=== PATIENT | female | born 1940 | race Caucasian/White ===

== ENCOUNTER → 2017-10-12 | Outpatient (CLI) | payer MEDICARE ==
[2016-04-29 10:55] VITALS: BP 111/70
[~2017-10-12] MED LIST: AMBIEN10 MG PO; CELEXA 20MG20 MG/TA1 PO; K-TAB20 MEQ PO; LASIX 40MG TABL40 MG PO; MOBIC15 M1 PO; PENTASA500 MG PO; SYNTHROID0.2 MG/TAB PO
== END ==
LOC: LAB 10:13
DX: E03.9 Hypothyroidism, unspecified (principal)

== ENCOUNTER → 2017-10-20 | Outpatient (CLI) | payer MEDICARE ==
[2016-04-29 10:55] VITALS: BP 111/70
[2017-10-20 12:19] LABS: BASO # 0.1 (0.02-0.10); EOS # 0.2 (0.04-0.40); EOS % 2.9 % (1.0-5.0); HEMATOCRIT 32.9 % (37.0-47.0); HEMOGLOBIN 9.7 g/dL (12.5-16.0); LYMPH# 1.2 (1.50-4.00); MEAN CELL VOLUME 105 fl (78-100); MEAN CORPUSCULAR HEMOGLOBIN 31 pg (27-31); MEAN CORPUSCULAR HGB CONC 30 g/dL (33-37); MEAN PLATELET VOLUME 10.5 fl (7.4-10.4); MONO # 0.7 (0.20-0.80); NEU # 5.8 (1.40-6.50); PLATELET COUNT 272 K/mm3 (130-400); RED BLOOD COUNT 3.14 M/mm3 (4.10-5.30); RED CELL DISTRIBUTION WIDTH 14.9 % (11.5-14.5); WHITE BLOOD COUNT 8.4 K/mm3 (4.8-10.8)
[2017-10-20 12:29] LABS: ALBUMIN 2.8 g/dL (3.5-5.0); BUN/CREATININE RATIO 8.3 (6.0-26.0); CALCIUM 8.1 mg/dL (8.4-10.2); POTASSIUM 4.9 mmol/L (3.6-5.0); TOTAL BILIRUBIN 0.7 mg/dL (0.2-1.3); TOTAL PROTEIN 5.4 g/dL (6.3-8.2)
[2017-10-20 13:25] LABS: ERYTHROCYTE SEDIMENTATION RATE 11 mm/hr (0-30)
== END ==
LOC: LAB 11:19
PROVIDERS: Internal Medicine
DX: R19.7 Diarrhea, unspecified (principal); K50.00 Crohn's disease of small intestine without complications; Z88.0 Allergy status to penicillin; Z88.2 Allergy status to sulfonamides; Z88.8 Allergy status to other drugs, medicaments and biological substances

== ENCOUNTER → 2018-01-26 | Outpatient (CLI) | payer MEDICARE ==
[2016-04-29 10:55] VITALS: BP 111/70
[2018-01-26 11:58] LABS: URINE APPEARANCE CLEAR; URINE BILIRUBIN NEGATIVE (NEGATIVE); URINE BLOOD NEGATIVE (NEGATIVE); URINE COLOR YELLOW; URINE GLUCOSE NEGATIVE (NEGATIVE); URINE KETONE NEGATIVE (NEGATIVE); URINE LEUKOCYTE ESTERASE NEGATIVE (NEGATIVE); URINE MUCUS PRESENT (NOT PRESENT); URINE NITRATE NEGATIVE (NEGATIVE); URINE PROTEIN(semi-quant) NEGATIVE (NEGATIVE); URINE UROBILINOGEN NORMAL (NORMAL); URINE WBC 0-1 /hpf (0-3)
== END ==
LOC: LAB 11:01
PROVIDERS: Internal Medicine
DX: N30.00 Acute cystitis without hematuria (principal)

== ENCOUNTER 2018-09-13 09:00 | Outpatient (RCR) | payer MEDICARE ==
[2016-04-29 10:55] VITALS: BP 111/70
== END 2018-09-13 09:30 | disposition home or self-care (01) ==
LOC: PT 09:00
DX: S72.145D Nondisplaced intertrochanteric fracture of left femur, subsequent encounter for closed fracture with routine healing (principal); W18.30XD Fall on same level, unspecified, subsequent encounter
CPT/HCPCS: G8978-GP; G8979-GP

== ENCOUNTER → 2018-11-10 | Outpatient (CLI) | payer MEDICARE ==
[2016-04-29 10:55] VITALS: BP 111/70
[2018-11-10 13:27] LABS: URINE APPEARANCE CLOUDY; URINE BILIRUBIN NEGATIVE (NEGATIVE); URINE BLOOD 50 ery/uL (NEGATIVE); URINE COLOR YELLOW; URINE GLUCOSE NEGATIVE (NEGATIVE); URINE KETONE NEGATIVE (NEGATIVE); URINE LEUKOCYTE ESTERASE 2+ (NEGATIVE); URINE NITRATE NEGATIVE (NEGATIVE); URINE PROTEIN(semi-quant) 1+ mg/dL (NEGATIVE); URINE UROBILINOGEN NORMAL (NORMAL); URINE WBC >50 /hpf (0-3)
== END ==
LOC: LAB 13:00
PROVIDERS: Internal Medicine
DX: N39.0 Urinary tract infection, site not specified (principal)

== ENCOUNTER → 2019-01-07 | Outpatient (CLI) | payer MEDICARE ==
[2016-04-29 10:55] VITALS: BP 111/70
[2019-01-07 09:31] LABS: CALCIUM 8.1 mg/dL (8.4-10.2); POTASSIUM 4.5 mmol/L (3.6-5.0)
== END ==
LOC: LAB 08:48
PROVIDERS: Internal Medicine
DX: R60.0 Localized edema (principal)

== ENCOUNTER 2019-02-02 11:00 | Outpatient (RCR) | payer MEDICARE ==
[2016-04-29 10:55] VITALS: BP 111/70
== END 2019-03-01 | disposition still patient (30) ==
LOC: PT
DX: S79.912D Unspecified injury of left hip, subsequent encounter (principal); S79.911D Unspecified injury of right hip, subsequent encounter; M25.552 Pain in left hip; M25.551 Pain in right hip; M25.531 Pain in right wrist
CPT/HCPCS: G8978-GP; G8979-GP

== ENCOUNTER 2020-01-08 19:53 | Emergency (ER) | payer MEDICARE ==
[~2020-01-08] VITALS: Ht 167.6 cm; Wt 65.9 kg
[2020-01-08] MEDS ORDERED: CYANOCOBAL1000 MCG/2 IM (20:03)
[2020-01-08] MEDS ORDERED: TRIAMCINOLONE A60 M2 TP (20:04)
[2020-01-08] MEDS ORDERED: RECLAST5 MG/100 M (20:05)
[2020-01-08] MEDS ORDERED: SYNTHROID0.05 MG PO (20:05)
[2020-01-08 20:34] LABS: HEMATOCRIT 36.4 % (37.0-47.0); HEMOGLOBIN 10.8 g/dL (12.5-16.0); MEAN CELL VOLUME 108 fl (78-100); MEAN CORPUSCULAR HEMOGLOBIN 32 pg (27-31); MEAN CORPUSCULAR HGB CONC 30 g/dL (33-37); MEAN PLATELET VOLUME 10.1 fl (7.4-10.4); PLATELET COUNT 187 K/mm3 (130-400); RED BLOOD COUNT 3.38 M/mm3 (4.10-5.30); RED CELL DISTRIBUTION WIDTH 15.4 % (11.5-14.5)
[2020-01-08 20:39] LABS: WHITE BLOOD COUNT 20.2 K/mm3 (4.8-10.8)
[2020-01-08 20:49] LABS: ALBUMIN 2.8 g/dL (3.4-4.8); POTASSIUM 4.4 mmol/L (3.5-5.1)
[2020-01-08 20:51] LABS: CALCIUM 7.1 mg/dL (8.3-10.5)
[2020-01-08 20:52] LABS: TOTAL PROTEIN 4.9 g/dL (6.2-8.1)
[2020-01-08 20:54] LABS: BAND 1 % (0-10); LYMPHOCYTE 7 % (20-51); MONOCYTE 7 % (3-10); NEUTROPHILS 85 % (42-75); TOTAL BILIRUBIN 0.9 mg/dL (0.2-1.2)
[2020-01-08] MEDS ORDERED: HYDROCODONE AN473 M1 PO (21:51)
[2020-01-08] MEDS ORDERED: LEVAQUIN 750MG750 M1 PO (21:51)
[2020-01-08 22:10] VITALS: BP 95/51
== END 2020-01-08 22:10 | disposition home or self-care (01) ==
LOC: ED 19:53
PROVIDERS: Nurse Practitioner Primary Care
DX: J18.9 Pneumonia, unspecified organism (principal); K90.0 Celiac disease; K86.81 Exocrine pancreatic insufficiency; E03.9 Hypothyroidism, unspecified; K50.90 Crohn's disease, unspecified, without complications; Z79.891 Long term (current) use of opiate analgesic; Z88.6 Allergy status to analgesic agent